=== PATIENT | female | born 2000 | race Caucasian/White ===

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

== ENCOUNTER 2025-02-21 13:47 | Inpatient (IN) ==
[2025-02-21] MEDS ORDERED: LIDOCAINE 1% LOCAL 20 ML VIAL INFIL PRN (17:11)
[2025-02-21] MEDS: PENICILLIN GK 6 MU in DEXTROSE 5% 250 ML IV STA (17:29)
[2025-02-21] MEDS: LACTATED RINGER'S 1,000 ML IV PRN (17:29)
[2025-02-21 17:42] LABS: Hematocrit (blood only) 35.8 % (37.0-47.0); Hemoglobin 12.4 g/dl (12.0-16.0); Mean Corpuscular Hemoglobin 29.6 pg (25.0-34.0); Mean Corpuscular Volume 85.4 fL (80.0-100.0); Platelet Count 176 K/uL (130-400); RDW Standard Deviation 42.0 fL (36.4-46.3); Red Blood Count 4.19 M/uL (4.20-5.40); White Blood Count 11.58 K/ul (4.8-10.8)
--- NOTE | 2025-02-21 17:50 | History & Physical Report ---
Date of Service February 21, 2025 Assessment & Plan (1) Supervision of normal intrauterine in primigravida: (2) GBS carrier: Plan 24 yo G1 at 41 2/7 wga presents in early labor VSS Fetus cat 1 Labor - expectant management GBS+, pcn ordered would like to try w/o epidural History of Present Illness Chief Complaint: ctx Primary Care Provider: [facility] 24 yo G1 at 40 4/7 wga presents w/ ctx increasing in frequency and intensity. 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, pcos denies hx stis Allergies Allergy/AdvReac Type Severity Reaction Status Date / Time No Known Allergies Allergy Verified 02/21/25 14:10 Home Medications Medication Instructions Recorded Confirmed Type vits no.124-ferrous fum 1 tab PO DAILY 02/21/25 02/21/25 History 27 mg iron-folic acid 800 mcg tablet ( Vitamin) Patient History Medical History (Updated 02/21/25 @ 17:49 by Kami Serrano MD) PCOS (polycystic ovarian syndrome) Kaya vaginitis Surgical History No significant past surgical history Family History Unknown Diabetes Denies family history of Ovarian cancer Breast cancer Colorectal cancer Social History Smoking Status: Never smoker Second Hand Exposure: No; Do You Dip or Chew Tobacco: No; Hx Alcohol Use: No Hx Substance Use: No Preferred Language: Sami Communication Ability: Effective Field Support Engineer Required: No Beliefs That Will Affect Care: None marital status: marital status details: Michael (25) [phone] Current Living Situation: Spouse Current Living Situation Comment: lives with spouse, no pets. current occupational status: employed current occupation: Other Information That Helps Us Care for You: No Feels Safe at Home: Yes Safety Concerns: Feels Safe At This Time Assistive Devices: None Physical Exam Genitourinary: OB Exam Abdomen: + vertex OB Exam Monitor Tracing: + external FHT monitor used, + external uterine monitor used (q3-5) and + category I (130/mod/+accel/-decel) SVE 3/75/-2 > 4/75/-2 Results & Data Vital Signs (Past 12 Hours) Vital Signs Temp Pulse Resp BP 02/21/25 13:59 98.2 F 115 H 20 132/72 Laboratory Results OB Labs: Blood Type B Positive 08/04/24 Antibody Screen NEGATIVE 08/04/24 Hgb 11.7 g/dl (12.0-16.0) L 01/05/25 Hct 34.5 % (37.0-47.0) L 01/05/25 MCV 87.8 fL (80.0-100.0) 08/04/24 Plt Count 233 K/uL (130-400) 08/04/24 Rubella IgG Antibody Immune (Immune) 08/04/24 Treponema pallidum Ab Negative (Negative) 11/24/24 Hep Bs Antigen Negative (Negative) 08/04/24 Hepatitis C Antibody Negative (Negative) 08/04/24 HIV 1&2 Ab/P24 Ag 4thGn Negative (Negative) 08/04/24 Glucose 1 Hr 50 gm 95 mg/dl (70-130) 11/24/24 OB Optional Labs: Chlamydia trachomatis RNA Not Detected (NotDetected) 08/04/24 Neisseria gonorrhoeae RNA Not Detected (NotDetected) 08/04/24 Thyroid Stimulating Hormone (TSH) 2.328 uIu/ml (0.300-4.500) 01/05/25 Labs Reviewed: Horizon 14-negative--mln cfdna-low risk--mln Diagnostic Findings 12/08 EFW 55%, post plac Coding Level of Care Code None Diagnoses Supervision of normal intrauterine in primigravida Z34.00 GBS carrier Z22.330
[2025-02-21] MEDS: PENICILLIN GK 3 MU in DEXTROSE 5% 100 ML IV PRN (21:23)
--- NOTE | 2025-02-21 21:37 | Labor Progress Brief Note ---
Date of Service February 21, 2025 Subjective ctx a bit worse Assessment & Plan (1) Supervision of normal intrauterine in primigravida: (2) GBS carrier: Plan 24 yo G1 at 41 2/7 wga presents in early labor VSS Fetus cat 1 Labor - slight progress, now 4-5 and slightly thinner. Discussed arom, pt has been in bed for a bit so would like to try to walk for an hour or two and recheck, consider arom at that point if unchanged GBS+, pcn ordered would like to try w/o epidural Admission and Anticipated Discharge Date Admission Date: February 21, 2025 Physical Exam Genitourinary: Manual OB Exam: + cervical dilation (4-5), + cervical effacement 80% and + station -2 OB Exam Monitor Tracing: + external FHT monitor used, + external uterine monitor used (q3-5) and + category I (120/mod/+accel/-decel) Results & Data Vital Signs (Past 12 Hours) Vital Signs Temp Pulse Resp BP Pulse Ox 02/21/25 21:00 97.9 F 02/21/25 20:57 85 117/76 02/21/25 19:34 82 97 02/21/25 19:29 88 96 02/21/25 19:24 81 96 02/21/25 19:19 88 96 02/21/25 19:15 98.1 F 02/21/25 19:14 91 H 96 02/21/25 19:09 87 96 02/21/25 19:04 85 120/77 97 02/21/25 18:59 87 98 02/21/25 13:59 98.2 F 115 H 20 132/72 Coding Level of Care Code None Diagnoses Supervision of normal intrauterine in primigravida Z34.00 GBS carrier Z22.330
[2025-02-21] MEDS ORDERED: SODIUM CHLORIDE 0.9% PF INJ 10 ML VIAL ONE (23:31)
[2025-02-21] MEDS ORDERED: LIDOCAINE 2%/EPINEPHRINE 1:200,000 20 ML PF ONE (23:31)
[2025-02-21] MEDS ORDERED: BUPIVACAINE 0.25% PF 30 ML VIAL ONE (23:31)
[2025-02-21] MEDS ORDERED: LIDOCAINE 2%/EPINEPHRINE 1:200,000 20 ML PF EPI STA (23:46)
[2025-02-21] MEDS ORDERED: NALOXONE HCL 1 MG in SODIUM CHLORIDE 0.9% 1,000 ML IV PRN (23:46)
[2025-02-21] MEDS ORDERED: SODIUM CHLORIDE 0.9% PF INJ 10 ML VIAL EPI STA (23:46)
[2025-02-21] MEDS ORDERED: NALBUPHINE HCL INJ 10 MG/ML AMP IV PRN (23:46)
[2025-02-21] MEDS ORDERED: diphenhydrAMINE 50 MG/ML VIAL IV PRN (23:46)
[2025-02-21] MEDS ORDERED: fentANYL 2 MCG/ML BUPIVacaine 0.125%-NSS 100ML BAG EPI PRN (23:46)
[2025-02-21] MEDS ORDERED: ROPIVACAINE 0.5% PF 5 MG/ML 20 ML VIAL EPI PRN (23:46)
[2025-02-21] MEDS ORDERED: SODIUM CHLORIDE 0.9% PF INJ 10 ML VIAL EPI PRN (23:46)
[2025-02-21] MEDS ORDERED: BUPIVACAINE 0.25% PF 30 ML VIAL EPI STA (23:46)
[2025-02-21] MEDS ORDERED: LIDOCAINE 2% MPF LOCAL 5 ML VIAL EPI PRN (23:46)
[2025-02-21] MEDS ORDERED: NALOXONE HCL 0.4 MG/1 ML VIAL/CARP IV PRN (23:46)
[2025-02-21] MEDS ORDERED: BUPIVACAINE 0.25% PF 30 ML VIAL EPI PRN (23:46)
--- NOTE | 2025-02-21 23:46 | Anesthesiology Consultation ---
Date of Service February 21, 2025 Assessment & Plan (1) Encounter for pre-operative examination: Chart Review Chart Review: Patient NOT seen in Pre Admission Testing and Acceptable Risk for Labor Epidural Consults Requested none History Height/Weight Height: 5 ft 7 in Weight: 98.883 kg Allergies Allergy/AdvReac Type Severity Reaction Status Date / Time No Known Allergies Allergy Verified 02/21/25 14:10 Medications Home Medications Medication Instructions Recorded Confirmed Last Taken vits no.124-ferrous fum 1 tab PO DAILY 02/21/25 02/21/25 02/21/25 08:00 27 mg iron-folic acid 800 mcg tablet ( Vitamin) Active Medications Generic Name Dose Route Start Last Admin Trade Name Freq PRN Reason Stop Dose Admin Lactated Ringer's 1,000 mls @ 125 mls/hr 02/21/25 17:11 02/21/25 18:32 Lr IV 02/23/25 17:10 125 mls/hr .Q8H PRN Infusion L&D Protocol Protocol Penicillin G Potassium 3 mu/ 106 mls @ 100 mls/hr 02/21/25 20:11 02/21/25 21:23 Dextrose IV 03/03/25 20:10 100 mls/hr Q4H PRN Administration GBS(+) Until Delivery Past Medical History Medical History (Updated 02/21/25 @ 23:46 by Tiburcio Wilson DO) PCOS (polycystic ovarian syndrome) Kaya vaginitis Past Family History Family History Unknown Diabetes Denies family history of Ovarian cancer Breast cancer Colorectal cancer Past Surgical History Surgical History No significant past surgical history Social History Smoking Status: Never smoker Do You Dip or Chew Tobacco: No Hx Alcohol Use: No Hx Substance Use: No Physical Exam Vital Signs Last Vital Signs Temp 97.9 F 02/21/25 21:00 Pulse 79 02/21/25 23:43 Resp 20 02/21/25 13:59 BP 120/79 02/21/25 23:43 Pulse Ox 97 02/21/25 19:34 Testing Laboratory Results 02/21/25 17:26
[2025-02-22] MEDS: fentANYL 2 MCG/ML BUPIVacaine 0.125%-NSS 100ML BAG ONE (00:11)
--- NOTE | 2025-02-22 01:12 | Labor Progress Brief Note ---
Date of Service February 22, 2025 Subjective comfortable w/ epidural Assessment & Plan (1) Supervision of normal intrauterine in primigravida: (2) GBS carrier: Plan 24 yo G1 at 41 2/7 wga presents in early labor VSS Fetus cat 1 Labor - small progress, planned to arom as pt agreeable following epidural but underwent srom just before entering room. Pt would prefer to see if rom now will continue w/ progress GBS+, pcn ordered epidural in place Admission and Anticipated Discharge Date Admission Date: February 21, 2025 Physical Exam Genitourinary: Manual OB Exam: + cervical dilation 5 cm, + cervical effacement 90%, + station -2 and + amniotic fluid (srom clear) OB Exam Monitor Tracing: + external FHT monitor used, + external uterine monitor used (q4-5) and + category I (125/mod/+accel/-decel, had few variables immediately w/ srom but resolved) Results & Data Vital Signs (Past 12 Hours) Vital Signs Temp Pulse Resp BP Pulse Ox 02/22/25 01:05 110 H 98 02/22/25 01:00 94 H 97 02/22/25 00:59 81 125/81 02/22/25 00:55 97 H 98 02/22/25 00:51 118 H 131/68 02/22/25 00:50 118 H 98 02/22/25 00:45 90 99 02/22/25 00:44 96 H 122/72 02/22/25 00:40 80 98 02/22/25 00:39 76 120/61 02/22/25 00:36 93 H 131/69 02/22/25 00:35 78 97 02/22/25 00:30 74 98 02/22/25 00:29 80 121/64 02/22/25 00:27 78 115/61 02/22/25 00:25 98 02/22/25 00:25 75 02/22/25 00:25 75 118/60 02/22/25 00:23 77 113/62 02/22/25 00:21 82 119/63 02/22/25 00:20 87 98 02/22/25 00:19 88 107/60 02/22/25 00:17 77 112/62 02/22/25 00:15 98 H 106/59 L 98 02/22/25 00:13 87 116/78 02/22/25 00:11 94 H 108/55 L 02/22/25 00:10 96 H 98 02/22/25 00:09 88 114/57 L 02/22/25 00:07 92 H 112/58 L 02/22/25 00:05 93 H 113/73 98 02/22/25 00:03 84 112/79 02/22/25 00:01 91 H 112/77 02/22/25 00:00 87 98 02/21/25 23:56 104 H 93 02/21/25 23:55 97 H 98 02/21/25 23:53 91 H 127/86 02/21/25 23:50 94 H 99 02/21/25 23:43 79 120/79 02/21/25 23:40 97.9 F 02/21/25 21:00 97.9 F 02/21/25 20:57 85 117/76 02/21/25 19:34 82 97 02/21/25 19:29 88 96 02/21/25 19:24 81 96 02/21/25 19:19 88 96 02/21/25 19:15 98.1 F 02/21/25 19:14 91 H 96 02/21/25 19:09 87 96 02/21/25 19:04 85 120/77 97 02/21/25 18:59 87 98 02/21/25 13:59 98.2 F 115 H 20 132/72 Coding Level of Care Code None Diagnoses Supervision of normal intrauterine in primigravida Z34.00 GBS carrier Z22.330
[2025-02-22] MEDS: OXYTOCIN 30 UNITS/NSS 30 UNITS/500 ML BAG IV PRN (05:48)
--- NOTE | 2025-02-22 06:11 | Delivery Summary ---
Vaginal Delivery Summary Date of Service February 22, 2025 Vaginal Delivery Summary PREOPERATIVE DIAGNOSIS: 1. Single intrauterine at 41 3/7 wga 2. Labor 3. GBS+ POSTOPERATIVE DIAGNOSIS: 1. Single intrauterine at 41 3/7 wga 2. Labor 3. GBS+ 4. Delivered PROCEDURE: 1. Normal spontaneous vaginal delivery. SURGEON: Kami Serrano MD ANESTHESIA: Epidural. QUANTITATIVE BLOOD LOSS: 257 mL FLUIDS: Continuous LR. URINE OUTPUT: 100cc by straight cath after procedure COMPLICATIONS: None. CONDITION: Stable. INDICATIONS: 24 yo G1 at 41 3/7 wga presented with contractions increasing in frequency and intensity. She was 3cm on arrival and progressed to 4cm. She received an epidural for pain control and had srom. She progressed spontaneously to complete and desired to push. FINDINGS: A viable female , weight pending with Apgars of 8 and 9 at 1 and 5 minutes respectively. SPECIMEN: Cord blood OPERATIVE REPORT: The patient progressed to 10 cm, 100% effaced and +2 station, pushed over intact perineum with anesthesia to deliver a viable female infant, weight and Apgars as above. Head of delivered in DEBRA position. Nuchal cord was loosened. Body and shoulders were delivered without difficulty. was delivered to maternal abdomen and nursing staff. Delayed cord clamping was performed for 60 seconds. Cord was clamped and cut. Cord blood was obtained. Placenta delivered spontaneously intact with 3-vessel cord. IV oxytocin and fundal massage were given for excellent hemostasis. Vagina, cervix, perineum, and placenta were inspected. A right and left vaginal laceration were repaired with 3-0 vicryl in the usual fashion, there was excellent hemostasis. Sponge and needle counts correct x2. No sponges were left behind. Mother and stable in immediate period. [facility] [place] Vaginal Delivery Codes: 94237 global code for the antepartum, delivery, and post-
[2025-02-22] MEDS ORDERED: IBUPROFEN 600 MG TAB PO PRN (06:35)
[2025-02-22] MEDS ORDERED: OXYTOCIN 30 UNITS/NSS 30 UNITS/500 ML BAG IV PRN (06:35)
[2025-02-22] MEDS ORDERED: ACETAMINOPHEN 325 MG TAB PO PRN (06:35)
[2025-02-22] MEDS ORDERED: DIPHTHER/TETAN/PERTUS Vaccine (Tdap, Adol/Adult) 0.5mL IM ONE (06:35)
[2025-02-22] MEDS ORDERED: HYDROCORTISONE ACETATE 25 MG SUPP PR PRN (06:35)
--- NOTE | 2025-02-22 07:31 | Anesthesia Procedure Note ---
Date of Service February 22, 2025 Anesthesia Post Epidural Note Vital Signs Vital Signs: Temp Pulse Resp BP Pulse Ox 36.6 C 119 H 16 123/61 97 02/22/25 03:00 02/22/25 07:27 02/22/25 03:30 02/22/25 07:24 02/22/25 07:27 Notes Mental Status: alert / awake / arousable Nausea / Vomiting: adequately controlled Pain: adequately controlled Airway Patency, RR, SpO2: stable & adequate BP & HR: stable & adequate Hydration State: stable & adequate Neuraxial Anesthesia: was administered and sensory block is resolving Anesthetic Complications: no major complications apparent and Pt Satisfied with anesthetic care Epidural: Removed without complications and With tip intact
[2025-02-22] MEDS: BENZOCAINE 20% SPRY 85 APPLN/85 GM CAN EXT PRN (08:44)
[2025-02-22] MEDS: FERROUS SULFATE 325 MG TAB PO SCH (08:44)
[2025-02-22] MEDS: PRENATAL VITAMIN 1 TAB PO SCH (08:44)
[2025-02-22] MEDS: DOCUSATE SODIUM 100 MG CAP PO SCH (08:44)
[2025-02-22 09:33] VITALS: RESP 18
[2025-02-22 15:22] VITALS: O2SAT 97
--- NOTE | 2025-02-23 06:32 | Obstetrical Progress Note ---
Date of Service <Archie Alvarez MD - Last Filed: 02/23/25 07:40> February 23, 2025 Assessment & Plan <Archie Alvarez MD - Last Filed: 02/23/25 07:40> (1) care and examination: 24yo [id number] day 1 s/p Fells well today. Vital signs stable Continue post- care Encourage ambulation and Pain controlled with ibuprofen Hgb stable Discharge home today, follow up with [facility] in 6 weeks. <Estela Marlow MD - Last Filed: 02/24/25 13:07> (1) care and examination: Subjective <Archie Alvarez MD - Last Filed: 02/23/25 07:40> 24yo post- day 1 s/p Ambulation: ambulating normally Voiding: no voiding problems Passing Gas:: Yes Diet Tolerance:: regular diet Lochia:: Small Feeding Type:: bottle and breast feeding, going well Current Pain Level: 2/10 controlled with Ibuprofen and Tylenol Resting comfortably this AM Denies BRONSON, CP, SOB, N/V/D, LE pain/swelling. Physical Exam <Archie Alvarez MD - Last Filed: 02/23/25 07:40> General: patient resting comfortably, NAD, non-toxic in appearance, AA&O x 4, answers questions appropriately. Skin: warm, dry, intact HEENT: NC/AT, anicteric sclera, conjunctiva without injection, moist mucus membranes. Heart: +S1/S2, regular, no m/r/g Lungs: equal air entry bilaterally, no rales/rhonchi/wheezes Abd: +BS, soft, NT/ND, uterine fundus firm at umbilicus Ext: warm, no clubbing/cyanosis or edema, Lauri's neg. Neuro: nonfocal, patient AA&O x 4, speech intact, no facial droop, moving all extremities on command. Results & Data <Archie Alvarez MD - Last Filed: 02/23/25 07:40> Vital Signs (Past 12 Hours) Vital Signs Temp Pulse Resp BP 02/23/25 03:35 37.0 C 106 H 18 112/76 02/23/25 00:20 37.1 C 94 H 18 132/84 02/22/25 19:55 37.1 C 105 H 18 125/80 Supervising Physician <Estela Marlow MD - Last Filed: 02/24/25 13:07> Co-Signing Physician Notes Resident Physician Supervision Note: I interviewed and examined the patient. Discussed with Dr. Alvarez and agree with findings and plan as documented in the note. Any exceptions or clarifications are listed here: [ ] Documented By: Estela Marlow MD, FACOG
[2025-02-23 09:43] VITALS: BP 112/74; TEMP 98.2
[2025-02-23 12:38] VITALS: PULSE 106
--- NOTE | 2025-02-23 17:43 | Electrocardiogram Report ---
Test Reason : Blood Pressure : */* mmHG Vent. Rate : 92 BPM Atrial Rate : 92 BPM P-R Int : 134 ms QRS Dur : 76 ms QT Int : 360 ms P-R-T Axes : 39 63 29 degrees QTcB Int : 445 ms Normal sinus rhythm Normal ECG When compared with ECG of 15-Jan-2025 14:19, No significant change was found Confirmed by Archie Garrido ([id number]) on 02/23/2025 5:43:28 PM Referred By: Kami Serrano Confirmed By: Archie Garrido
== END 2025-02-23 14:40 | disposition home or self-care (01) | DRG 806 ==
LOC: 4S1 13:47 → OPB 13:47 → 4S1 17:11 → 4E2 02-22 08:34
DX: B95.1 Streptococcus, group B, as the cause of diseases classified elsewhere; Z3A.41 41 weeks gestation of pregnancy; O98.82 Other maternal infectious and parasitic diseases complicating childbirth; O69.81X0 Labor and delivery complicated by cord around neck, without compression, not applicable or unspecified; O71.4 Obstetric high vaginal laceration alone; Z37.0 Single live birth